=== PATIENT | male | born 1995 | race American Indian/Alaskan Native ===

== ENCOUNTER 2016-04-18 10:11 | Emergency (ER) | payer SELFPAY ==
[2016-04-18 10:35] VITALS: BP 107/63
== END 2016-04-18 10:31 | disposition left against medical advice (07) ==
LOC: ED 10:11
DX: M79.1 Myalgia (principal); J02.9 Acute pharyngitis, unspecified; R05 Cough; R51 Headache; F12.90 Cannabis use, unspecified, uncomplicated; Z53.21 Procedure and treatment not carried out due to patient leaving prior to being seen by health care provider

== ENCOUNTER 2016-04-19 09:11 | Emergency (ER) | payer SELFPAY ==
[2016-04-19 09:54] VITALS: BP 101/62
--- NOTE | 2016-04-19 10:18 | Emergency Department Report ---
Chief Complaint: Sore Throat Stated Complaint: FLU SYMPTOMS Time Seen by Provider: 04/19/16 10:07 - HPI History of Present Illness: 20-year-old male comes in for complaint of flulike symptoms 4-5 days. He complains of sore throat fever chills. Denies any nausea vomiting. He has tried [id number] [place] plus without much relief. - Exam Vital Signs: Vital Signs 04/19/16 09:50 Temperature 99.1 F Pulse Rate 91 H Blood Pressure 101/62 O2 Sat by Pulse 16 L Oximetry Physical Exam: Alert and oriented 3 tonsils are hypertrophic, tenderness to the glands of the neck MSE screening note: Focused history and physical exam performed. Due to findings the following was ordered: Patient been evaluated by this provider in MSE. We will send out a rapid strep as well as a rapid influenza . Patient be evaluated in fast track ED Disposition for MSE Condition: Stable
--- NOTE | 2016-04-19 11:40 | Emergency Department Report ---
- General Chief Complaint: Sore Throat Stated Complaint: FLU SYMPTOMS Time Seen by Provider: 04/19/16 10:07 Source: patient Mode of arrival: Ambulatory Limitations: No Limitations - History of Present Illness Initial Comments: Patient presents with body aches, headache, sore throat, chills. Denies abdominal pain, sick contacts, shortness of breath. He does admit to coughing frequently nonproductive and congestion. MD Complaint: fever, cough, sore throat, rhinorrhea, nasal congestion Severity: moderate Severity scale (0 -10): 8 Quality: dull, aching Consistency: constant Improves With: OTC cold medicine Worsens With: nothing Associated Symptoms: fever, chills, myalgias, headache, rhinorrhea, nasal congestion, sore throat, cough. denies: stiff neck, chest pain, shortness of breath, abdominal pain, nausea, vomiting, diarrhea, dysuria Treatments Prior to Arrival: "cold medicine" - Related Data Previous Rx's Medication Instructions Recorded Last Taken Type Dextromethorphan HBr [Tussin Cough] 15 mg PO Q6HR #80 liquid 04/19/16 Unknown Rx Ibuprofen [Motrin 800 MG tab] 800 mg PO Q8HR PRN #20 tablet 04/19/16 Unknown Rx Allergies Allergy/AdvReac Type Severity Reaction Status Date / Time No Known Allergies Allergy Unverified 04/19/16 09:54 ED Review of Systems ROS: Stated complaint: FLU SYMPTOMS Other details as noted in HPI Constitutional: chills, fever Eyes: denies: eye pain, eye discharge, vision change ENT: throat pain, congestion Respiratory: cough. denies: shortness of breath Cardiovascular: denies: chest pain, palpitations Gastrointestinal: denies: abdominal pain, nausea, diarrhea Genitourinary: denies: urgency, dysuria Musculoskeletal: as per HPI Skin: denies: rash, lesions Neurological: headache. denies: weakness, paresthesias, abnormal gait Psychiatric: denies: anxiety, depression ED Past Medical Hx - Social History Smoking Status: Never Smoker Substance Use Type: Alcohol, Marijuana - Medications Home Medications: Home Medications Medication Instructions Recorded Confirmed Last Taken Type Dextromethorphan HBr [Tussin Cough] 15 mg PO Q6HR #80 liquid 04/19/16 Unknown Rx Ibuprofen [Motrin 800 MG tab] 800 mg PO Q8HR PRN #20 tablet 04/19/16 Unknown Rx ED Physical Exam - General Limitations: No Limitations, Other (ill appearance but nontoxic) General appearance: alert, in no apparent distress - Head Head exam: Present: atraumatic, normocephalic - Eye Eye exam: Present: normal appearance, PERRL - ENT ENT exam: Present: mucous membranes moist, TM's normal bilaterally - Expanded ENT Exam Expanded Mouth exam: Present: normal external inspection Teeth exam: Present: normal inspection Throat exam: Positive: normal inspection, tonsillar erythema - Neck Neck exam: Present: normal inspection, full ROM. Absent: tenderness, lymphadenopathy - Respiratory Respiratory exam: Present: normal lung sounds bilaterally. Absent: respiratory distress, wheezes, rales, rhonchi - Cardiovascular Cardiovascular Exam: Present: regular rate, normal rhythm. Absent: systolic murmur, diastolic murmur, rubs, gallop - GI/Abdominal GI/Abdominal exam: Present: soft, normal bowel sounds. Absent: tenderness - Extremities Exam Extremities exam: Present: normal inspection, full ROM - Back Exam Back exam: Present: normal inspection, full ROM - Neurological Exam Neurological exam: Present: alert, oriented X3 - Psychiatric Psychiatric exam: Present: normal affect, normal mood - Skin Skin exam: Present: warm, dry, intact, normal color. Absent: rash ED Course Vital Signs 04/19/16 09:50 Temperature 99.1 F Pulse Rate 91 H Respiratory 16 Rate Blood Pressure 101/62 O2 Sat by Pulse 100 Oximetry ED Medical Decision Making - Medical Decision Making Patient presents with sore throat, body aches, headache, cough. Strep and flu is negative. I will give ibuprofen 800 mg twice a day and dextromethorphan for cough and body aches/headache. I'll advise to follow-up with outpatient clinic and they'll decide if symptoms do not resolve. Also advised to stay well- hydrated and wrist 2 days. - Differential Diagnosis flu, URI, strep throat Critical Care Time: No Critical care attestation.: If time is entered above; I have spent that time in minutes in the direct care of this critically ill patient, excluding procedure time. ED Disposition Clinical Impression: Viral syndrome, Cough, Body aches Disposition: DISCHARGED TO HOME OR SELFCARE Is pt being admited?: No Does the pt Need Aspirin: No Condition: Stable Instructions: Viral Syndrome (ED), Dextromethorphan (By mouth), Analgesic/ Antihistamine/Antitussive/Decongestant (By mouth) Additional Instructions: Follow-up with outside outpatient clinic [facility] if symptoms do not resolve or worsen. Rest, increase fluid intake. Prescriptions: Ibuprofen [Motrin 800 MG tab] 800 mg PO Q8HR PRN #20 tablet PRN Reason: Pain Dextromethorphan HBr [Tussin Cough] 15 mg PO Q6HR #80 liquid Forms: Work/School Release Form(ED) Time of Disposition: 11:45
== END 2016-04-19 11:45 | disposition home or self-care (01) ==
LOC: ED 09:11
DX: B34.9 Viral infection, unspecified (principal); R05 Cough; M79.1 Myalgia; F12.90 Cannabis use, unspecified, uncomplicated
CPT/HCPCS: 87116; 87400; 87430; 99282